=== PATIENT | female | born 1960 | race Caucasian/White ===

== ENCOUNTER 2021-06-21 08:51 | Outpatient (CLI) | payer BC | END 2021-06-21 08:52 | disposition home or self-care (01) | LOC: BICMAMMO 08:51 | PROVIDERS: ATTEND Nurse Practitioner Family | DX: N63.22 Unspecified lump in the left breast, upper inner quadrant (principal) | CPT/HCPCS: 76942; 77066; G0279 ==

== ENCOUNTER 2024-02-20 05:53 | Day surgery (SDC) | payer BC ==
[2024-02-19 10:31] VITALS: BMI 21.2
[2024-02-20] MEDS ORDERED: CEFAZOLIN 2 GM VIAL ONE (07:10)
[2024-02-20] MEDS ORDERED: Sodium Chloride 0.9% 100 ML ONE (07:10)
[2024-02-20] MEDS ORDERED: Midazolam HCl 2 mg/2 ml Vial ONE (07:11)
[2024-02-20] MEDS ORDERED: PROPOFOL 20 ML ONE (07:11)
[2024-02-20] MEDS ORDERED: fentaNYL PF 100 MCG/2 ML SYRINGE ONE (07:11)
[2024-02-20] MEDS ORDERED: Glycopyrrolate 0.2 MG/ML 5 ML SYRINGE ONE (07:23)
[2024-02-20] MEDS ORDERED: Lidocaine 1% PF 5 ML VIAL ONE (07:25)
[2024-02-20] MEDS ORDERED: Ondansetron PF 4 MG/2 ML Vial ONE (07:29)
[2024-02-20] MEDS ORDERED: Dexamethasone 20 MG/5 ML VIAL ONE (07:29)
[2024-02-20] MEDS ORDERED: Ketorolac Tromethamine 30 MG (1 mL) VIAL ONE (08:07)
[2024-02-20] MEDS ORDERED: Ropivacaine 0.5% HCl/PF (150 MG/30 ML VIAL) ONE (08:25)
== END 2024-02-20 10:57 | disposition home or self-care (01) ==
LOC: SDC 05:53
PROVIDERS: ATTEND Orthopaedic Surgery
PROC: 3E0T3BZ Introduction of Anesthetic Agent into Peripheral Nerves and Plexi, Percutaneous Approach (ICD-10-PCS; principal; 2024-02-20)
PROC: 0PSH04Z Reposition Right Radius with Internal Fixation Device, Open Approach (ICD-10-PCS; principal; 2024-02-20)
DX: S52.501A Unspecified fracture of the lower end of right radius, initial encounter for closed fracture (principal); F41.9 Anxiety disorder, unspecified; Z98.890 Other specified postprocedural states; Z98.51 Tubal ligation status; Z79.899 Other long term (current) drug therapy; F17.210 Nicotine dependence, cigarettes, uncomplicated; W18.30XA Fall on same level, unspecified, initial encounter
CPT/HCPCS: C1713; J1100; J1885; J2250; J2405; J2704; J2795